=== PATIENT | male | born 1990 | race Caucasian/White ===

== ENCOUNTER 2016-08-13 17:45 | Emergency (ER) | payer OTHER ==
[~2016-08-13] VITALS: Wt 113.6 kg
[~2016-08-13 17:45] MED LIST: CLON2TAB3 PO; LORA1TAB PO
--- NOTE | 2016-08-13 17:49 | QN ---
Documentation Comment Patient is a 26-year-old male who presents with anxiety. He was brought in by ambulance and was seen immediately upon arrival. Medical screening exam was initiated. The patient will be sent to triage for vital signs will be seen by another provider. YASMIN LUDWIG MD Aug 13, 2016 17:48
[2016-08-13] MEDS ORDERED: CLON2TAB3 PO (19:29)
[2016-08-13] MEDS ORDERED: ATEN50TA PO (19:30)
[2016-08-13] MEDS ORDERED: LORAZEPAM 1 MG TAB PO ONE (19:30)
[2016-08-13 19:47] VITALS: BP 140/82; RESP 18; TEMP 98.8
--- NOTE | 2016-08-13 20:40 | ERD ---
ER Documentation Chief Complaint Date/Time DATE: 08/13/16 TIME: 20:38 Chief Complaint FEELING ANXIOUS AND DEPRESSED PT WANTS TO GET HELP. PT DENIES SI OR HI HPI Patient is a 26-year-old male with anxiety and depression who presents with anxiety. The patient was brought in by ambulance. He says "everything in my life that she had". He said that he tried stopping Klonopin 2 days ago on his own and now feels like he will . However he denies suicidal or homicidal ideation. He just says that he does not feel well. Please note that he is well -known to myself under another name Michael Farnsworth and has multiple visits to the emergency department for similar type complaints upon review of old medical records. ROS All systems reviewed and are negative except as per history of present illness. Medications Home Meds Reported Medications Atenolol* (Atenolol*) 50 Mg Tablet, 50 MG PO DAILY, #30 TAB 08/13/16 Clonazepam* (Clonazepam*) 2 Mg Tablet, 2 MG PO TID, TAB 08/13/16 Discontinued Scripts Clonazepam* (Clonazepam*) 2 Mg Tablet, 2 MG PO BID Y for ANXIETY, #12 TAB Prov:GENE TOLENTINO MD 05/09/16 Lorazepam* (Lorazepam*) 1 Mg Tablet, 1 MG PO Q8, #10 TAB Prov:SHIRA IRVIN 09/20/15 Allergies Allergies: Coded Allergies: chlordiazepoxide (Unverified Allergy, Unknown, 08/13/16) hydroxyzine (Unverified Allergy, Unknown, 08/13/16) PMhx/Soc Medical and Surgical Hx: pt denies Medical Hx, pt denies Surgical Hx History of Surgery: No Anesthesia Reaction: No Hx Neurological Disorder: No Hx Respiratory Disorders: No Hx Cardiac Disorders: No Hx Psychiatric Problems: No Hx Miscellaneous Medical Probl: Yes (anxiety, ptsd on klonopin ) Hx Alcohol Use: No Hx Substance Use: No Hx Tobacco Use: No Smoking Status: Never smoker FmHx Family History: No diabetes Physical Exam Vitals Vital Signs Date Time Temp Pulse Resp B/P Pulse Ox O2 Delivery O2 Flow Rate FiO2 08/13/16 19:47 98.8 18 140/82 97 Room Air 08/13/16 18:00 98.8 108 20 145/89 97 Physical Exam Const: Anxious Head: Atraumatic Eyes: Normal Conjunctiva ENT: Normal External Ears, Nose and Mouth. Neck: Full range of motion..~ No meningismus. Resp: Clear to auscultation bilaterally Cardio: Regular rate and rhythm, no murmurs Abd: Soft, non tender, non distended. Normal bowel sounds Skin: No petechiae or rashes Back: No midline or flank tenderness Ext: No cyanosis, or edema Neur: Awake and alert Psych: Anxious but denies suicidal or homicidal ideation Results 24 hrs Current Medications Medications (Trade) Dose Ordered Sig/Litzy Route PRN Reason Start Time Stop Time Status Last Admin Dose Admin Lorazepam (Ativan) 1 mg ONCE ONCE PO 08/13/16 19:30 08/13/16 19:31 DC 08/13/16 19:44 Procedures/MDM Patient is a 26-year-old male presents with acute anxiety and depression. He denies suicidal or homicidal ideation and I do not believe he requires a 5150 hold at this time. The patient was given Ativan by mouth. He will be discharged home and I will give a list of resources for psychiatric resources. He will need to return for any worsening symptoms. I believe outpatient management is appropriate. Departure Diagnosis: Primary Impression: Depression Depression Type: unspecified Qualified Code: F32.9 - Depression, unspecified depression type Additional Impression: Anxiety Condition: Fair Patient Instructions: Depression Referrals: [facility] YOU HAVE RECEIVED A MEDICAL SCREENING EXAM AND THE RESULTS INDICATE THAT YOU DO NOT HAVE A CONDITION THAT REQUIRES URGENT TREATMENT IN THE EMERGENCY DEPARTMENT. FURTHER EVALUATION AND TREATMENT OF YOUR CONDITION CAN WAIT UNTIL YOU ARE SEEN IN YOUR DOCTORS OFFICE WITHIN THE NEXT 1-2 DAYS. IT IS YOUR RESPONSIBILITY TO MAKE AN APPOINTMENT FOR FOLOW-UP CARE. IF YOU HAVE A PRIMARY DOCTOR --you should call your primary doctor and schedule an appointment IF YOU DO NOT HAVE A PRIMARY DOCTOR YOU CAN CALL OUR PHYSICIAN REFERRAL HOTLINE AT IF YOU CAN NOT AFFORD TO SEE A PHYSICIAN YOU CAN CHOSE FROM THE FOLLOWING [facility] [address] [facility] [address] [facility] [facility] [address] [facility] [address] [facility]. [facility] [address] [facility]. [facility] [address] Additional Instructions: SPECIALIST: YOU HAVE A MEDICAL CONDITION WHICH REQUIRES YOU TO SEE A SPECIALIST WITHIN THE NEXT 1-2 DAYS. PLEASE FOLLOW UP WITH YOUR PRIMARY PHYSICIAN FOR REFFERAL.IF YOU DO NOT HAVE A PRIMARY CARE PHYSICIAN AND/OR YOU CAN NOT AFFORD TO SEE A PHYSICIAN THE FOLLOWING RESOURCES HAVE BEEN SUPPLIED TO YOU. IT IS YOUR RESPONSIBILITY TO BE SEEN BY THE SPECIALIST YASMIN LUDWIG MD Aug 13, 2016 20:40
== END 2016-08-13 19:48 | disposition home or self-care (01) ==
LOC: E/R 17:45
DX: F32.9 Major depressive disorder, single episode, unspecified (principal); R40.2142 Coma scale, eyes open, spontaneous, at arrival to emergency department; R40.2252 Coma scale, best verbal response, oriented, at arrival to emergency department; R40.2362 Coma scale, best motor response, obeys commands, at arrival to emergency department
CPT/HCPCS: Z7502; Z7610; 99283

== ENCOUNTER 2018-02-08 05:11 | Emergency (ER) | END 2018-02-08 11:19 | disposition home or self-care (01) ==